=== PATIENT | female | born 2000 | race Caucasian/White ===

== ENCOUNTER 2022-02-13 19:15 | Emergency (ER) | payer BC ==
[~2022-02-13] VITALS: Ht 162.6 cm; Wt 86.5 kg
[2022-02-13 19:18] VITALS: BP 120/80
[2022-02-13] MEDS ORDERED: ACETAMINOPHEN 325MG TABLET PO ONE (21:00)
[2022-02-13] MEDS ORDERED: OXYC-100 MT (22:28)
== END 2022-02-13 23:26 | disposition home or self-care (01) ==
LOC: ER 19:15
DX: S82.52XA Displaced fracture of medial malleolus of left tibia, initial encounter for closed fracture (principal); S82.492A Other fracture of shaft of left fibula, initial encounter for closed fracture; W10.8XXA Fall (on) (from) other stairs and steps, initial encounter; Y93.17 Activity, water skiing and wake boarding; Y92.252 Music hall as the place of occurrence of the external cause
CPT/HCPCS: 73590; 73600; 73630; 99284